=== PATIENT | female | born 1945 | race Caucasian/White ===

== ENCOUNTER → 2017-11-07 | Outpatient (CLI) | payer OTHER ==
[~2017-11-07] VITALS: Ht 157.5 cm; Wt 63.5 kg
[~2017-11-07] MED LIST: CYMBALTA60 MG PO; DIOVAN 80 MG TA80 M1 PO; GABAPENTIN 100100 MG PO; NORTRIPTYLINE H50 MG PO; OMEPRAZOLE 20 M20 MG PO; PLAVIX 75 MG TA75 M1 PO; TOPAMAX 100 MG100 MG PO
--- NOTE | ~2017-11-07 | S ---
[facility] [place] [place] [address] SURGICAL PATH RPT PROCEDURE Name: RESHMA SINGH A Room #: REG MEHREEN Anne MarieGerson.#: [id number] Admission: 11/07/17 Date of : 45 Discharge: Report #: [id number] Path Case #: [id number] PATHOLOGY REPORT COLLECTION DATE: 11/07/2017 RECEIVED DATE: 11/08/2017 SUBMITTING PHYS: Dr. Segun Simmons OTHER PHYS: Dr. Kelly Rao SPECIMEN(S) RECEIVED: A.T12 vertebral body tissue * * * * * * * * * * * * FINAL DIAGNOSIS: Bone, T12 bone, biopsy: - Extensive fresh hemorrhage, clinical history of compression fracture. - Trilineage hematopoiesis as well as fatty marrow space. - Negative for metastatic carcinoma (please see comment). (IUV:bonita; 11/09/2017) COMMENT: Well-controlled immunohistochemical stains performed: AE1/AE3 performed on block A1 - Negative Co-review: Dr. Yeimi Mcwilliams (IUV:bonita; 11/09/2017) PATHOLOGIST: Yolanda Barragan M.D. REPORT ELECTRONICALLY SIGNED BY: Yolanda Barragan M.D. DATE/TIME: 11/10/2017 10:20 * * * * * * * * * * * * GROSS PATHOLOGY: Received in formalin labeled "Scott Reshma, T12 bone BX" and consists of a 0.3 x 0.3 x 0.2 cm aggregate of predominantly blood clot. No osseous tissue is grossly identified. The specimen is totally submitted as A1. (KAMINI; 11/08/2017) CLINICAL HISTORY: Osteoporosis versus metastases, compression fracture of T12 INITIAL CPT CODE(S): A; 98105, 49337, [address] [facility] [place] [address] SURGICAL PATH RPT PROCEDURE Name: RESHMA SINGH Patsy Room #: REG MEHREEN Leonard#: [id number] Admission: 11/07/17 Date of : 45 Discharge: Report #: [id number] Path Case #: [id number] Professional services performed by [facility] at [address], [place] [address] Technical services performed by [facility] at [address] [place] [address], [facility] [address] [place] [address]. [facility] [address] [place] [address] PHONE: [phone] DIRECTOR: Ronny Harris M.D. * * * END OF REPORT * * *
[2017-11-07 09:51] VITALS: BP 112/73
[2017-11-07 10:12] LABS: HEMATOCRIT 39.9 % (37.0-47.0); HEMOGLOBIN 13.2 gm/dL (12.0-15.0); MCH 31.4 pg (26.0-34.0); MCV 95.1 fL (80.0-100.0); RBC 4.2 mil/uL (4.20-5.00); RDW 15.2 % (10.5-14.5); WBC 6.2 thou/uL (4.0-11.0)
[2017-11-07 10:23] LABS: CALCIUM 9.7 mg/dL (8.5-10.1); CREATININE 1.4 mg/dL (0.6-1.0); POTASSIUM 4.1 mmol/L (3.5-5.1)
[2017-11-07 10:28] VITALS: BP 112/73
[2017-11-07 12:00] VITALS: BP 113/61
[2017-11-07 13:00] VITALS: BP 113/64
== END | disposition home or self-care (01) ==
LOC: SPEC 08:06
PROVIDERS: Radiology Vascular & Interventional Radiology
DX: S22.080A Wedge compression fracture of T11-T12 vertebra, initial encounter for closed fracture (principal); I10 Essential (primary) hypertension; M10.9 Gout, unspecified; K21.9 Gastro-esophageal reflux disease without esophagitis; G43.909 Migraine, unspecified, not intractable, without status migrainosus; Z90.49 Acquired absence of other specified parts of digestive tract; Z86.79 Personal history of other diseases of the circulatory system; Z82.49 Family history of ischemic heart disease and other diseases of the circulatory system; Z86.73 Personal history of transient ischemic attack (TIA), and cerebral infarction without residual deficits; Z98.890 Other specified postprocedural states; Z79.899 Other long term (current) drug therapy; X58.XXXA Exposure to other specified factors, initial encounter; Y93.89 Activity, other specified; Y92.89 Other specified places as the place of occurrence of the external cause; Y99.8 Other external cause status